=== PATIENT | female | born 1995 | race Caucasian/White ===

== ENCOUNTER 2017-11-26 11:40 | Outpatient (CLI) | payer MEDICAID, OTHER ==
[2017-11-26] MEDS: LACTATED RINGER'S 1,000 ML IV* ×2 (12:50→18:13)
[2017-11-26 12:52] LABS: ADD MAN DIFF? NO
[2017-11-26 12:55] LABS: BASOPHILS % 0.3 % (0.0-2.0); EOSINOPHILS # 0.1 10^3/ul (0.0-0.5); EOSINOPHILS % 1.2 % (0.0-7.0); HEMATOCRIT 30.9 % (37.0-47.0); HEMOGLOBIN 10.1 g/dl (12.0-16.0); LYMPHOCYTES # 2.2 10^3/ul (0.8-2.9); LYMPHOCYTES % 21.7 % (18.0-55.0); MEAN CORPUSCULAR HEMOGLOBIN 29.1 pg (29.0-33.0); MEAN CORPUSCULAR HGB CONC 32.7 g/dl (32.0-37.0); MEAN PLATELET VOLUME 8.6 fl (7.4-10.4); MONOCYTE # 0.9 10^3/ul (0.3-0.9); MONOCYTES % 8.7 % (0.0-13.0); NEUTROPHIL # 6.9 10^3/ul (1.6-7.5); NUCLEATED RED BLOOD CELLS% 0.4 /100WBC (0.0-0.0); PLATELET COUNT 316 10^3/UL (140-415); RED BLOOD COUNT 3.47 10^6/ul (4.20-5.40)
[2017-11-26 12:55] LABS: WHITE BLOOD COUNT 10.3 10^3/ul (4.8-10.8)
[2017-11-26 13:25] LABS: ADD UMIC YES; UR AMORPHOUS CRYSTAL FEW /HPF (NONE SEEN); UR ASCORBIC ACID NEGATIVE (NEGATIVE); UR BACTERIA FEW /HPF (NONE SEEN); UR BILIRUBIN (Dip) NEGATIVE (NEGATIVE); UR BLOOD (Dip) 1+ mg/dL (NEGATIVE); UR CLARITY CLOUDY (CLEAR); UR COLOR YELLOW (YELLOW); UR GLUCOSE (Dip) 1+ mg/dL (NEGATIVE); UR KETONES (Dip) NEGATIVE (NEGATIVE); UR LEUKOCYTE ESTERASE (Dip) 3+ Leu/ul (NEGATIVE); UR NITRITE (Dip) NEGATIVE (NEGATIVE); UR RBC 75 /HPF (0-5); UR SPECIFIC GRAVITY (Dip) 1.004 (1.003-1.030); UR SQUAMOUS EPITHELIAL CELL FEW /HPF (FEW); UR TOTAL PROTEIN (Dip) NEGATIVE (NEGATIVE); UR UROBILINOGEN (Dip) NEGATIVE (NEGATIVE); UR WBC 26 /HPF (0-5)
[2017-11-26] MEDS: CEFAZOLIN 2 GM/50 ML (PMX) 50 ML IVPB (16:58)
== END 2017-11-26 19:59 | disposition home or self-care (01) ==
LOC: OBT 11:40 → L-D 11:41 → OBT 19:59
DX: O9A.213 Injury, poisoning and certain other consequences of external causes complicating pregnancy, third trimester (principal); S39.91XA Unspecified injury of abdomen, initial encounter; W22.8XXA Striking against or struck by other objects, initial encounter; Y92.009 Unspecified place in unspecified non-institutional (private) residence as the place of occurrence of the external cause; O23.43 Unspecified infection of urinary tract in pregnancy, third trimester; Z3A.34 34 weeks gestation of pregnancy
CPT/HCPCS: 36415; 76818; 81001; 85025; 85460; 86850; 86900; 86901; 87086; 96360; 96361; 96366

== ENCOUNTER 2017-12-12 16:04 | Outpatient (CLI) | payer MEDICAID ==
[2017-12-12 17:50] LABS: RUPTURE FETAL MEMBRANES NEGATIVE (NEGATIVE)
== END 2017-12-12 20:45 | disposition home or self-care (01) ==
LOC: OBT 16:04 → L-D 16:05 → OBT 20:45
DX: O32.1XX0 Maternal care for breech presentation, not applicable or unspecified (principal); O42.90 Premature rupture of membranes, unspecified as to length of time between rupture and onset of labor, unspecified weeks of gestation; Z3A.36 36 weeks gestation of pregnancy
CPT/HCPCS: 76818; 84112

== ENCOUNTER 2017-12-13 11:06 | Outpatient (CLI) | payer MEDICAID | END 2017-12-13 12:45 | disposition home or self-care (01) | LOC: OBT 11:06 → L-D 11:06 → OBT 12:45 | DX: O26.853 Spotting complicating pregnancy, third trimester (principal); O32.1XX0 Maternal care for breech presentation, not applicable or unspecified; Z3A.37 37 weeks gestation of pregnancy | CPT/HCPCS: Z7500 ==

== ENCOUNTER 2018-01-01 08:57 | Inpatient (IN) | payer MEDICAID ==
[~2018-01-01 08:57] MED LIST: OXYTOCIN 30 UNITS/LR 500 ML BAG IV
[2018-01-01] MEDS ORDERED: METHYLERGONOVINE 0.2 MG INJ IM ×2 (10:00→23:00)
[2018-01-01] MEDS ORDERED: CARBOPROST 250 MCG INJ IM ×2 (10:00→23:00)
[2018-01-01] MEDS ORDERED: OXYTOCIN 30 UNITS/LR 500 ML IV ×2 (10:00→23:00)
[2018-01-01] MEDS ORDERED: MISOPROSTOL 200 MCG TAB PR ×2 (10:00→23:00)
[2018-01-01] MEDS: LACTATED RINGER'S 1,000 ML IV ×2 (10:20→15:18)
[2018-01-01 10:31] LABS: ADD MAN DIFF? NO
[2018-01-01 10:40] LABS: WHITE BLOOD COUNT 10.6 10^3/ul (4.8-10.8)
[2018-01-01 10:40] LABS: BASOPHILS % 0.3 % (0.0-2.0); EOSINOPHILS # 0.1 10^3/ul (0.0-0.5); EOSINOPHILS % 0.8 % (0.0-7.0); HEMATOCRIT 28.8 % (37.0-47.0); LYMPHOCYTES # 2.1 10^3/ul (0.8-2.9); LYMPHOCYTES % 19.7 % (18.0-55.0); MEAN CORPUSCULAR HEMOGLOBIN 26.2 pg (29.0-33.0); MEAN CORPUSCULAR HGB CONC 31.3 g/dl (32.0-37.0); MONOCYTE # 0.7 10^3/ul (0.3-0.9); MONOCYTES % 6.5 % (0.0-13.0); NEUTROPHIL # 7.7 10^3/ul (1.6-7.5); NEUTROPHILS % 72.2 % (30.0-74.0); NUCLEATED RED BLOOD CELLS% 0.2 /100WBC (0.0-0.0); PLATELET COUNT 341 10^3/UL (140-415); RED BLOOD COUNT 3.43 10^6/ul (4.20-5.40)
[2018-01-01 11:37] LABS: PARTIAL THROMBOPLASTIN TIME 25.2 Sec (25.0-35.0)
[2018-01-01 11:38] LABS: INR 0.94; PROTIME 12.7 Sec (11.9-14.9)
[2018-01-01 15:25] LABS: RAPID PLASMA REAGIN NONREACTIVE (NR)
[2018-01-01] MEDS ORDERED: PHENYLephrine (100 MCG/ML) 10ML SYG (16:00)
[2018-01-01] MEDS ORDERED: OXYTOCIN 10 UNIT INJ (16:00)
[2018-01-01] MEDS ORDERED: morphine SULFATE/PF (10 MG/10 ML) INJ (16:00)
[2018-01-01] MEDS ORDERED: ONDANSETRON 4 MG INJ (16:00)
[2018-01-01] MEDS ORDERED: BUPIVACAINE 0.75%/DEXT (SPINAL) 2 ML INJ (16:01)
[2018-01-01] MEDS ORDERED: FENTAnyl 50 MCG/ML VIAL (16:24)
[2018-01-01] MEDS: OXYTOCIN 30 UNITS/LR 500 ML IV ×2 (17:00→20:56)
[2018-01-01] MEDS ORDERED: morphine 2 MG INJ IV (17:30)
[2018-01-01] MEDS ORDERED: DIPHENHYDRAMINE 50 MG INJ IV (17:30)
[2018-01-01] MEDS ORDERED: ONDANSETRON 4 MG INJ IV (17:30)
[2018-01-01] MEDS ORDERED: NALOXONE (0.4 MG/ML) INJ IV (17:30)
[2018-01-01] MEDS: CEFAZOLIN 2 GM/50 ML (PMX) 50 ML IV (17:57)
[2018-01-01] MEDS: KETOROLAC 30 MG INJ IV (18:26)
[2018-01-01] MEDS ORDERED: NACL 0.9% 3 ML SYG IV (23:00)
[2018-01-01] MEDS ORDERED: NA PHOSPHATE/BIPHOS 133 ML ENEMA PR (23:00)
[2018-01-02] MEDS: KETOROLAC 30 MG INJ IV ×2 (03:02→11:25)
[2018-01-02] MEDS: LACTATED RINGER'S 1,000 ML IV ×2 (06:37→08:21)
[2018-01-02] MEDS: OXYTOCIN 30 UNITS/LR 500 ML IV (08:21)
[2018-01-02] MEDS: LANOLIN 7 GM TUBE TOP (09:06)
[2018-01-02] MEDS: HYDROCODONE/APAP (5/325) TAB PO (19:00)
[2018-01-02] MEDS: IBUPROFEN 800 MG TAB PO (21:45)
[2018-01-03] MEDS: HYDROCODONE/APAP (5/325) TAB PO ×3 (01:01→19:52)
[2018-01-03] MEDS: IBUPROFEN 800 MG TAB PO ×3 (05:36→22:25)
[2018-01-04] MEDS: HYDROCODONE/APAP (5/325) TAB PO ×2 (00:39→10:55)
[2018-01-04] MEDS: IBUPROFEN 800 MG TAB PO (05:43)
[2018-01-04] MEDS: MEASLES,MUMPS,RUBELLA VACCINE INJ SC* (09:00)
[2018-01-04 10:42] LABS: ADD MAN DIFF? NO
[2018-01-04 10:46] LABS: WHITE BLOOD COUNT 10.7 10^3/ul (4.8-10.8)
[2018-01-04 10:46] LABS: BASOPHILS % 0.4 % (0.0-2.0); EOSINOPHILS # 0.2 10^3/ul (0.0-0.5); EOSINOPHILS % 1.9 % (0.0-7.0); HEMATOCRIT 24.7 % (37.0-47.0); HEMOGLOBIN 7.6 g/dl (12.0-16.0); LYMPHOCYTES # 1.8 10^3/ul (0.8-2.9); LYMPHOCYTES % 16.5 % (18.0-55.0); MEAN CORPUSCULAR HEMOGLOBIN 26.1 pg (29.0-33.0); MEAN CORPUSCULAR HGB CONC 30.8 g/dl (32.0-37.0); MEAN CORPUSCULAR VOLUME 84.9 fl (72.0-104.0); MEAN PLATELET VOLUME 8.8 fl (7.4-10.4); MONOCYTE # 0.5 10^3/ul (0.3-0.9); NEUTROPHIL # 8.1 10^3/ul (1.6-7.5); NEUTROPHILS % 75.1 % (30.0-74.0); NUCLEATED RED BLOOD CELLS% 0.2 /100WBC (0.0-0.0); PLATELET COUNT 330 10^3/UL (140-415); RED BLOOD COUNT 2.91 10^6/ul (4.20-5.40); RED CELL DISTRIBUTION WIDTH 16.6 % (11.5-14.5)
[2018-01-04] MEDS: DIPHTH/TET/ACEL PERTUSS (ADULT) 0.5 ML VIAL IM* (10:55)
== END 2018-01-04 13:00 | disposition home or self-care (01) | DRG 766 ==
LOC: L-D 08:57 → PP1 21:48
PROVIDERS: Obstetrics & Gynecology
PROC: 10D00Z1 Extraction of Products of Conception, Low, Open Approach (ICD-10-PCS; principal; 2018-01-01 15:30)
DX: O32.1XX0 Maternal care for breech presentation, not applicable or unspecified (principal); Z3A.39 39 weeks gestation of pregnancy; Z37.0 Single live birth; Z23 Encounter for immunization
CPT/HCPCS: 76815; 85025; 85610; 85730; 86592; 86850; 86900; 86901; 99464

== ENCOUNTER 2018-07-10 14:51 | Emergency (ER) | payer MEDICAID ==
[2018-07-10 16:37] LABS: ADD MAN DIFF? NO
[2018-07-10 16:38] LABS: BASOPHILS % 0.4 % (0.0-2.0); EOSINOPHILS # 0.1 10^3/ul (0.0-0.5); EOSINOPHILS % 1.3 % (0.0-7.0); HEMATOCRIT 32.7 % (37.0-47.0); HEMOGLOBIN 10.3 g/dl (12.0-16.0); LYMPHOCYTES # 3.3 10^3/ul (0.8-2.9); LYMPHOCYTES % 32.8 % (15.0-51.0); MEAN CORPUSCULAR HEMOGLOBIN 27.5 pg (29.0-33.0); MEAN CORPUSCULAR HGB CONC 31.5 g/dl (32.0-37.0); MEAN CORPUSCULAR VOLUME 87.4 fl (82.0-101.0); MEAN PLATELET VOLUME 8.8 fl (7.4-10.4); MONOCYTE # 0.7 10^3/ul (0.3-0.9); MONOCYTES % 6.5 % (0.0-11.0); NEUTROPHILS % 58.7 % (39.0-77.0); PLATELET COUNT 351 10^3/UL (140-415); RED BLOOD COUNT 3.74 10^6/ul (4.20-5.40); RED CELL DISTRIBUTION WIDTH 14.3 % (11.5-14.5)
[2018-07-10 16:38] LABS: WHITE BLOOD COUNT 10.1 10^3/ul (4.8-10.8)
[2018-07-10 16:41] LABS: ADD UMIC YES; UR ASCORBIC ACID NEGATIVE (NEGATIVE); UR BILIRUBIN (Dip) NEGATIVE (NEGATIVE); UR BLOOD (Dip) NEGATIVE (NEGATIVE); UR CLARITY CLEAR (CLEAR); UR COLOR YELLOW (YELLOW); UR GLUCOSE (Dip) NEGATIVE (NEGATIVE); UR KETONES (Dip) NEGATIVE (NEGATIVE); UR LEUKOCYTE ESTERASE (Dip) TRACE Leu/ul (NEGATIVE); UR NITRITE (Dip) NEGATIVE (NEGATIVE); UR RBC 1 /HPF (0-5); UR SPECIFIC GRAVITY (Dip) 1.023 (1.003-1.030); UR SQUAMOUS EPITHELIAL CELL FEW /HPF (FEW); UR TOTAL PROTEIN (Dip) NEGATIVE (NEGATIVE); UR UROBILINOGEN (Dip) NEGATIVE (NEGATIVE); UR WBC 1 /HPF (0-5)
[2018-07-10 17:00] LABS: ALANINE AMINOTRANSFERASE 20 IU/L (13-69); ALBUMIN 4.3 g/dl (3.3-4.9); ALBUMIN/GLOBULIN RATIO 1.16; ALKALINE PHOSPHATASE 75 IU/L (42-121); ANION GAP 9 (5-13); ASPARTATE AMINO TRANSFERASE 18 IU/L (15-46); BLOOD UREA NITROGEN 10 mg/dl (7-20); CALCIUM 9.7 mg/dl (8.4-10.2); CARBON DIOXIDE 24 mmol/L (21-31); CHLORIDE 106 mmol/L (97-110); CREATININE 0.58 mg/dl (0.44-1.00); Estimated GFR > 60 mL/min (>60); GLUCOSE 90 mg/dl (70-220); LIPASE 124 U/L (23-300); POTASSIUM 4.5 mmol/L (3.5-5.1); SODIUM 139 mmol/L (135-144)
== END 2018-07-10 18:05 | disposition home or self-care (01) ==
LOC: FTE 14:51
DX: O20.9 Hemorrhage in early pregnancy, unspecified (principal); O23.41 Unspecified infection of urinary tract in pregnancy, first trimester; O99.511 Diseases of the respiratory system complicating pregnancy, first trimester; J45.909 Unspecified asthma, uncomplicated; Z3A.08 8 weeks gestation of pregnancy
CPT/HCPCS: 36415; 76805; 80053; 81001; 83690; 84702; 85025; 99284-25

== ENCOUNTER 2019-02-09 10:10 | Inpatient (IN) | payer MEDICAID ==
[2019-02-09] MEDS ORDERED: MISOPROSTOL 200 MCG TAB PR ×2 (10:30→12:30)
[2019-02-09] MEDS ORDERED: CARBOPROST 250 MCG INJ IM ×2 (10:30→12:30)
[2019-02-09] MEDS ORDERED: CEFAZOLIN 2 GM/50 ML (PMX) 50 ML IVPB (10:30)
[2019-02-09] MEDS ORDERED: METHYLERGONOVINE 0.2 MG INJ IM ×2 (10:30→12:30)
[2019-02-09] MEDS ORDERED: OXYTOCIN 30 UNITS/LR 500 ML IV ×5 (10:30→12:30)
[2019-02-09] MEDS: LACTATED RINGER'S 1,000 ML IV (11:04)
[2019-02-09] MEDS: CITRIC ACID/NA CITRATE 30 ML CUP PO (11:04)
[2019-02-09] MEDS ORDERED: METOCLOPRAMIDE 10 MG INJ (11:17)
[2019-02-09] MEDS ORDERED: morphine SULFATE/PF (10 MG/10 ML) INJ (11:17)
[2019-02-09] MEDS ORDERED: ONDANSETRON 4 MG INJ (11:17)
[2019-02-09] MEDS ORDERED: KETOROLAC 30 MG INJ (11:17)
[2019-02-09] MEDS ORDERED: EPHEDrine 25 MG/5 ML SYG (11:29)
[2019-02-09] MEDS ORDERED: NALOXONE (0.4 MG/ML) INJ IV (12:30)
[2019-02-09] MEDS ORDERED: NACL 0.9% 3 ML SYG IV (12:30)
[2019-02-09] MEDS ORDERED: MEPERIDINE 25 MG INJ IV (12:30)
[2019-02-09] MEDS ORDERED: DIPHENHYDRAMINE 50 MG INJ IV ×2 (12:30)
[2019-02-09] MEDS ORDERED: morphine 2 MG INJ IV ×5 (12:30)
[2019-02-09] MEDS ORDERED: ONDANSETRON 4 MG INJ IV ×2 (12:30)
[2019-02-09 12:32] LABS: ADD MAN DIFF? NO
[2019-02-09 12:38] LABS: WHITE BLOOD COUNT 9.6 10^3/ul (4.8-10.8)
[2019-02-09 12:38] LABS: BASOPHILS % 0.3 % (0.0-2.0); EOSINOPHILS # 0.1 10^3/ul (0.0-0.5); EOSINOPHILS % 0.9 % (0.0-7.0); HEMATOCRIT 39.3 % (37.0-47.0); LYMPHOCYTES # 1.8 10^3/ul (0.8-2.9); MEAN CORPUSCULAR HEMOGLOBIN 30.7 pg (29.0-33.0); MEAN CORPUSCULAR HGB CONC 33.1 g/dl (32.0-37.0); MEAN CORPUSCULAR VOLUME 92.9 fl (82.0-101.0); MEAN PLATELET VOLUME 9.5 fl (7.4-10.4); MONOCYTE # 0.6 10^3/ul (0.3-0.9); MONOCYTES % 5.8 % (0.0-11.0); NEUTROPHIL # 7.1 10^3/ul (1.6-7.5); NEUTROPHILS % 73.5 % (39.0-77.0); PLATELET COUNT 269 10^3/UL (140-415); RED BLOOD COUNT 4.23 10^6/ul (4.20-5.40); RED CELL DISTRIBUTION WIDTH 19.8 % (11.5-14.5)
[2019-02-09 12:56] LABS: PROTIME 12.3 Sec (11.9-14.9)
[2019-02-09 12:57] LABS: PARTIAL THROMBOPLASTIN TIME 27.2 Sec (23.0-35.0)
[2019-02-09 13:26] LABS: HEPATITIS B SURFACE ANTIGEN NEGATIVE (NEGATIVE)
[2019-02-09] MEDS: KETOROLAC 30 MG INJ IV (16:12)
[2019-02-09] MEDS: OXYTOCIN 30 UNITS/LR 500 ML IV ×2 (16:53→21:16)
[2019-02-09] MEDS: IBUPROFEN 600 MG TAB PO (18:00)
[2019-02-09] MEDS: CEFAZOLIN 2 GM/50 ML (PMX) 50 ML IVPB (22:01)
[2019-02-09 22:14] LABS: RAPID PLASMA REAGIN NONREACTIVE (NR)
[2019-02-10] MEDS: KETOROLAC 30 MG INJ IV ×2 (02:00→08:04)
[2019-02-10 05:02] LABS: ADD MAN DIFF? NO
[2019-02-10 05:11] LABS: BASOPHILS % 0.3 % (0.0-2.0); EOSINOPHILS # 0.1 10^3/ul (0.0-0.5); EOSINOPHILS % 0.6 % (0.0-7.0); HEMATOCRIT 35.4 % (37.0-47.0); HEMOGLOBIN 11.3 g/dl (12.0-16.0); LYMPHOCYTES # 1.9 10^3/ul (0.8-2.9); LYMPHOCYTES % 18.4 % (15.0-51.0); MEAN CORPUSCULAR HEMOGLOBIN 30.5 pg (29.0-33.0); MEAN CORPUSCULAR HGB CONC 31.9 g/dl (32.0-37.0); MEAN CORPUSCULAR VOLUME 95.7 fl (82.0-101.0); MEAN PLATELET VOLUME 9.2 fl (7.4-10.4); MONOCYTE # 0.9 10^3/ul (0.3-0.9); MONOCYTES % 8.3 % (0.0-11.0); NEUTROPHIL # 7.6 10^3/ul (1.6-7.5); NEUTROPHILS % 71.9 % (39.0-77.0); PLATELET COUNT 227 10^3/UL (140-415); RED CELL DISTRIBUTION WIDTH 19.5 % (11.5-14.5)
[2019-02-10 05:11] LABS: WHITE BLOOD COUNT 10.6 10^3/ul (4.8-10.8)
[2019-02-10] MEDS: CEFAZOLIN 2 GM/50 ML (PMX) 50 ML IVPB ×3 (05:59→13:39)
[2019-02-10] MEDS: IBUPROFEN 600 MG TAB PO ×5 (06:00→23:57)
[2019-02-10] MEDS: LANOLIN HPA 1 PKT TOP (10:07)
[2019-02-10] MEDS: morphine 2 MG INJ IV (10:32)
[2019-02-10] MEDS: LACTATED RINGER'S 1,000 ML IV (11:27)
[2019-02-10] MEDS: OXYCODONE/ACETAMINOPHEN (5/325) TAB PO ×2 (12:51→16:59)
[2019-02-11] MEDS: OXYCODONE/ACETAMINOPHEN (5/325) TAB PO ×2 (02:15→10:15)
[2019-02-11] MEDS: IBUPROFEN 600 MG TAB PO ×3 (05:34→18:01)
[2019-02-11] MEDS: BISACODYL 10 MG SUPP PR (15:05)
[2019-02-12] MEDS: IBUPROFEN 600 MG TAB PO ×3 (00:41→11:37)
[2019-02-12] MEDS: OXYCODONE/ACETAMINOPHEN (5/325) TAB PO ×2 (07:50→15:21)
== END 2019-02-12 16:55 | disposition home or self-care (01) | DRG 788 ==
LOC: L-D 10:10 → MS1 18:03
PROVIDERS: Obstetrics & Gynecology
PROC: 10D00Z1 Extraction of Products of Conception, Low, Open Approach (ICD-10-PCS; principal; 2019-02-09 12:30)
DX: O65.5 Obstructed labor due to abnormality of maternal pelvic organs (principal); O34.211 Maternal care for low transverse scar from previous cesarean delivery; Z3A.39 39 weeks gestation of pregnancy; Z37.0 Single live birth
CPT/HCPCS: 85025; 85610; 85730; 86592; 86850; 86900; 86901; 86920; 87340; 99464